=== PATIENT | male | born 1990 | race Caucasian/White ===

== ENCOUNTER 2022-07-20 18:30 | Emergency (ER) | payer OTHER, SELFPAY ==
[2022-07-20 18:37] VITALS: BP 132/82; PULSE 62; RESP 16; TEMP 36.6; O2SAT 99; BMI 31.4
[2022-07-20] MEDS: FLUORESCEIN 1 MG STRIP EYE-LEFT (18:45)
[2022-07-20] MEDS: PROPARACAINE 0.5% OPHTH SOL 1 DROPS EYE-LEFT (18:45)
[2022-07-20 19:18] VITALS: PULSE 87; O2SAT 97
[2022-07-20 19:19] VITALS: BP 138/85; PULSE 79; O2SAT 98
[2022-07-20 19:30] VITALS: BP 130/81; PULSE 77; O2SAT 95
[2022-07-20] MEDS: HYDROCODONE/ACET 5/325 TABLET 2 TAB PO (19:46)
[2022-07-20] MEDS: ONDANSETRON 4 MG ODT SL (19:47)
--- NOTE | 2022-07-20 20:14 | ED_ITS ---
HPI - Skin/Abscess/Foreign Bdy General Chief complaint: Skin/Abscess/Foreign Body Stated complaint: may have piece of metal in left eye Time Seen by Provider: 07/20/22 19:37 Source: patient Mode of arrival: Ambulatory History of Present Illness HPI narrative: drove patient here. Has complaints of foreign by left eye. Has history of [place] K surgery to both cornea 10 years ago. Patient was filing a part on his truck and some small metal foreign body floated into his left eye. Has blurry vision and watery eye. Tetanus up-to-date. Related Data Previous Rx's Medication Instructions Recorded hydrocodone 5 mg-acetaminophen 325 1 tab PO Q6H PRN pain #12 tabs 07/20/22 mg tablet ofloxacin 0.3 % eye drops (Ocuflox) 2 drp EYE-LEFT Q6H #10 mL 07/20/22 ondansetron 4 mg disintegrating 4 mg PO Q8H PRN nausea and 07/20/22 tablet vomiting #10 tabs Allergies Allergy/AdvReac Type Severity Reaction Status Date / Time No Known Drug Allergies Allergy Verified 07/20/22 18:39 Review of Systems Review of Systems Narrative: GENERAL: negative chills, fatigue, malaise, fever, sweats. HEENT: negative sinus pain, ear pain, sore throat, positive eye pain RESPIRATORY: negative dyspnea, cough CARDIOVASCULAR: negative chest pain, palpitations GASTROINTESTINAL: negative nausea, vomiting, abdominal pain : negative dysuria, frequency, hematuria MUSCULOSKELETAL: negative muscle or bony pain SKIN: negative rash, skin lesions NEUROLOGIC: negative weakness, numbness ROS Unobtainable: All systems reviewed & are unremarkable except as noted in HPI and below Patient History Social History Smoking Status: Never smoker Smoking Status: Never smoker Substance Use Type: does not use Exam Narrative Exam Narrative: GENERAL: in no distress, not toxic not dyspneic HEAD: Normocephalic. EYES: Pupils equal round EOMI intact. There is a small metallic foreign body 9 o'clock position of the left cornea. Slit-lamp Wood's lamp fluorescein saline wash completed. Negative Nadeen sign negative ice rink sign. I did try to use the bur drill and some small pharynx were removed. What remains appears to be rust ring, visual acuity completed. Left eye is 2020 both eyes together are 2015 NEURO: AOx4. SKIN: Warm and dry PSYCH: Not anxious, is cooperative Initial Vital Signs Initial Vital Signs: Vital Signs Temperature 98 F 07/20/22 18:37 Pulse Rate 62 07/20/22 18:37 Respiratory Rate 16 07/20/22 18:37 Blood Pressure 132/82 07/20/22 18:37 Pulse Oximetry 99 07/20/22 18:37 Oxygen Delivery Method Room Air 07/20/22 18:37 Course Orders Ordered: Discontinued Medications Hydrocodone Bitart/Acetaminophen (Hydrocodone/Acet 5/325 Tablet) 2 tab PO NOW ONE Stop: 07/20/22 19:38 Last Admin: 07/20/22 19:46 Dose: 2 tab Documented By: GHADA Hydrocodone Bitart/Acetaminophen (Hydrocodone/Acet 5/325 Prepack) 1 bottle MISC SEEINSTR ONE Stop: 07/20/22 20:45 Last Admin: 07/20/22 21:26 Dose: 1 bottle Documented By: GHADA Diphtheria/Tetanus/Acell Pertussis (Tet,Diph,Pertuss(Acell),Vac/Pf 0.5 Ml Syringe) 0.5 ml IM .ONCE ONE Stop: 07/20/22 18:37 Last Admin: 07/20/22 19:30 Dose: Not Given Documented By: GHADA Fluorescein Sodium (Fluorescein 1 Mg Strip) 1 mg EYE-LEFT NOW ONE Stop: 07/20/22 18:39 Last Admin: 07/20/22 18:45 Dose: 1 mg Documented By: TRENTON Ofloxacin (Ofloxacin 0.3% Ophth 5 Ml) 1 drops EYE-LEFT NOW ONE Stop: 07/20/22 20:14 Last Admin: 07/20/22 21:30 Dose: Not Given Documented By: GHADA Ofloxacin (Ofloxacin 0.3% Ophth 5 Ml) 2 drops EYE-LEFT NOW ONE Stop: 07/20/22 20:17 Last Admin: 07/20/22 21:27 Dose: Not Given Documented By: GHADA Ofloxacin (Ofloxacin 0.3% Ophth Prepack) 1 bottle MISC SEEINSTR ONE Stop: 07/20/22 21:15 Last Admin: 07/20/22 21:26 Dose: 2 drops Documented By: GHADA Ondansetron HCl (Ondansetron 4 Mg Odt) 4 mg SL NOW ONE Stop: 07/20/22 19:38 Last Admin: 07/20/22 19:47 Dose: 4 mg Documented By: GHADA Ondansetron HCl (Ondansetron 4 Mg Odt Prepack) 1 bottle MISC SEEINSTR ONE Stop: 07/20/22 20:45 Last Admin: 07/20/22 21:27 Dose: 1 bottle Documented By: GHADA Proparacaine HCl (Proparacaine 0.5% Ophth Gissell) 1 drops EYE-LEFT NOW ONE Stop: 07/20/22 18:38 Last Admin: 07/20/22 18:45 Dose: 1 drop Documented By: TRENTON Vital Signs Vital signs: Vital Signs - 8 hr 07/20/22 18:37 07/20/22 19:18 07/20/22 19:19 Temperature 98 F Pulse Rate 62 87 79 Respiratory Rate 16 Blood Pressure 132/82 Pulse Oximetry 99 97 98 Oxygen Delivery Method Room Air 07/20/22 19:19 07/20/22 19:30 07/20/22 19:30 Temperature Pulse Rate 77 Respiratory Rate Blood Pressure 138/85 130/81 Pulse Oximetry 95 Oxygen Delivery Method Room Air 07/20/22 21:25 07/20/22 21:25 Temperature Pulse Rate 74 Respiratory Rate 18 Blood Pressure 143/86 H Pulse Oximetry 96 Oxygen Delivery Method MDM - Skin/Abscess/Foreign Bdy MDM Narrative Medical decision making narrative: drove patient here. Has complaints of foreign by left eye. Has history of [place] K surgery to both cornea 10 years ago. Patient was filing a part on his truck and some small metal foreign body floated into his left eye. Has blurry vision and watery eye. Tetanus up-to-date. After history and exam visual acuity proparacaine fluorescein slit-lamp Wood's lamp bur drill MDM CC: Left eye foreign body Complicating co-morbidities: History of PRK surgery Data collected from: Patient Medical records reviewed: No recent visits for this complaint Differential considered: Includes but not limited to retained foreign body corneal abrasion Exam documented above, pertinent findings include: Foreign body 9 o'clock position left cornea No imaging indicated this time. It was not high speed velocity for foreign body. It fell into patient's eye Consultations: 8:30 p.m.. Spoke with [facility] ophthalmology, dr ford, he would like patient to follow up with local ophthalmology although we do not have any on-call tonight we do have a phone number patient can call an the eye with ricardo drill. patient may have resources at the [facility]. However back up phone number for [facility] ophthalmology clinic is [phone] patient can try calling if unsuccessful by mid morning tomorrow. Continue ofloxacin. I have removed majority the central portion of the foreign body which is most important according to almond pan finisher Treatments: Proparacaine bur drill ofloxacin Re-evaluations: 8:40 p.m.. Patient feeling better after bur drill procedure. I was able to get central portion of the foreign body out. I did review with patient follow up plans. My discussion with [facility] ophthalmology as well. He agrees with this plan.. Discussion: Appropriate for discharge home. I have removed as much as I can from Diagnosis: Left eye foreign body Discharge Plan Departure Patient Disposition: Home Clinical Impression: Acute foreign body of left cornea Instructions: DI for Foreign Body in the Eye Activity Restrictions/Additional Instructions: No driving or operating machinery tonight or when taking prescribed pain medication. Please contact the [facility] if ophthalmology service available for you to see tomorrow regarding your eye problem. May try calling Dr. Tonya denton ophthalmology locally but however not guarantee to be able to see you tomorrow. Phone number has been listed here. 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 Continue provided antibiotic eye drops 2 drops every 6 hours until office appointment time. Prescriptions: New hydrocodone-acetaminophen 5-325 mg tablet 1 tab PO Q6H PRN (Reason: pain) Qty: 12 0RF ofloxacin [Ocuflox] 0.3 % drops 2 drp EYE-LEFT Q6H Qty: 10 0RF ondansetron 4 mg tablet,disintegrating 4 mg PO Q8H PRN (Reason: nausea and vomiting) Qty: 10 0RF Referrals: Tonya Denton MD [Physician] - Provider,Zuleyka PACK [Primary Care Provider] - Stand Alone Forms: Patient Portal/API, Work Release Note
[2022-07-20 21:25] VITALS: BP 143/86; PULSE 74; RESP 18; O2SAT 96
[2022-07-20] MEDS: OFLOXACIN 0.3% OPHTH PREPACK 1 BOTTLE MISC (21:26)
[2022-07-20] MEDS: HYDROCODONE/ACET 5/325 PREPACK 1 BOTTLE MISC (21:26)
[2022-07-20] MEDS: ONDANSETRON 4 MG ODT PREPACK 1 BOTTLE MISC (21:27)
== END 2022-07-20 21:34 | disposition home or self-care (01) ==
PROVIDERS: Emergency Provider Emergency Medicine
DX: T15.02XA Foreign body in cornea, left eye, initial encounter (principal)
CPT/HCPCS: 99283